=== PATIENT | male | born 1980 | race Caucasian/White ===

== ENCOUNTER → 2017-01-28 | Outpatient (CLI) | payer BC ==
--- NOTE | 2017-01-28 16:25 | XR ---
EXAMINATION TYPE: XR chest 2V DATE OF EXAM: 01/28/2017 COMPARISON: 08/05/2016 INDICATION: Testicular cancer TECHNIQUE: Frontal and lateral views of the chest are obtained. FINDINGS: The heart size is normal. The pulmonary vasculature is normal. The lungs are clear. No suspicious osseous or lung masses. IMPRESSION: 1. No acute pulmonary process.
== END | disposition home or self-care (01) ==
LOC: RADXRMAIN 15:57
PROVIDERS: ATTEND Urology
DX: C62.90 Malignant neoplasm of unspecified testis, unspecified whether descended or undescended (principal)
CPT/HCPCS: 71020; 82105; 83615; 84702

== ENCOUNTER → 2018-02-08 | Outpatient (CLI) | payer OTHER ==
--- NOTE | 2018-02-08 23:48 | CT ---
EXAMINATION TYPE: CT abdomen pelvis w con DATE OF EXAM: 02/08/2018 COMPARISON: 08/05/2016 HISTORY: 37-year-old male Follow up for testicular cancer. TECHNIQUE: Contiguous axial scanning of the abdomen and pelvis following administration of 100 ml Iso kiran 300 IV contrast. Delayed images through the kidneys and coronal/sagittal reconstructions perform ed. CT DLP: 1310 mGycm Automated exposure control for dose reduction was used. FINDINGS: Heart is normal size without pericardial effusion. Lung bases clear without pleural effusion. Tiny hiatal hernia. The liver is mildly enlarged at 18.3 cm. No focal liver lesion or biliary ductal dilatation. Portal v enous system is patent. Gallbladder, adrenal glands, kidneys, spleen, and pancreas appear within normal limits. Scattered nonenlarged and borderline sized mesenteric lymph nodes are either stable to smaller now me asuring up to 6 mm versus 7 mm, previously. Postsurgical changes of retroperitoneal lymph node dissection. No retroperitoneal lymphadenopathy is identified. No dilated small bowel, free fluid, or free air. Normal appendix. Oral contrast has progressed to the rectum. There is mild stool burden. No pericolon ic inflammatory change. Bladder shows marked urinary distention to the level of the umbilicus and by 18.2 cm. No abnormal flu id collection in the pelvis or pelvic lymphadenopathy seen. Multiple pelvic phleboliths. The left larisa ticle appears surgically absent. Bones: Stable sclerotic focus within the left ischial tuberosity likely bone island. No osseous destr uctive process. IMPRESSION: 1. STATUS POST LEFT ORCHIECTOMY AND RETROPERITONEAL LYMPH NODE DISSECTION. 2. NONENLARGED AND BORDERLINE SIZED MESENTERIC LYMPH NODES ARE EITHER STABLE OR MINIMALLY SMALLER NOW MEASURING UP TO 6 MM VERSUS 7 MM, PREVIOUSLY, SUGGESTING A CHRONIC POSTINFLAMMATORY ETIOLOGY. NO RACHEL PICIOUS ENLARGING LYMPH NODES IN THE ABDOMEN OR PELVIS. 3. NO OTHER FINDINGS OF METASTATIC DISEASE. 4. NOTE MARKED URINARY BLADDER DISTENTION UP TO THE LEVEL OF THE UMBILICUS (MEASURING UP TO 18.2 CM). CORRELATE TO ENSURE THAT THIS REPRESENTS VOLUNTARY RETENTION.
== END | disposition home or self-care (01) ==
LOC: RADCTMAIN 14:19
PROVIDERS: ATTEND Urology
DX: N32.89 Other specified disorders of bladder (principal); Z85.47 Personal history of malignant neoplasm of testis; Z90.79 Acquired absence of other genital organ(s); Z98.890 Other specified postprocedural states
CPT/HCPCS: 84702; 82105; 74177; 36415; Q9967

== ENCOUNTER → 2018-08-31 | Outpatient (CLI) | payer OTHER ==
--- NOTE | 2018-08-31 13:44 | XR ---
EXAMINATION TYPE: XR chest 2V DATE OF EXAM: 08/31/2018 COMPARISON: 07/28/2017 HISTORY: History of testicular carcinoma. Follow-up exam. TECHNIQUE: Frontal and lateral views of the chest are obtained. FINDINGS: There is no focal air space opacity, pleural effusion, or pneumothorax seen. The cardiac silhouette size is within normal limits. The osseous structures are intact. IMPRESSION: No acute cardiopulmonary process.
== END | disposition home or self-care (01) ==
LOC: RADXRMAIN 13:09
PROVIDERS: ATTEND Urology
DX: C62.12 Malignant neoplasm of descended left testis (principal)
CPT/HCPCS: 71046; 82105

== ENCOUNTER → 2019-04-12 | Outpatient (CLI) | payer OTHER ==
--- NOTE | 2019-04-12 12:59 | XR ---
EXAMINATION TYPE: XR chest 2V DATE OF EXAM: 04/12/2019 COMPARISON: Chest x-ray August 31, 2018. HISTORY: History of testicular cancer and hematuria. TECHNIQUE: Frontal and lateral views of the chest are obtained. FINDINGS: There is no focal air space opacity, pleural effusion, or pneumothorax seen. The cardiac silhouette size is within normal limits. The osseous structures are intact. IMPRESSION: No acute cardiopulmonary process. No significant change from prior.
--- NOTE | 2019-04-12 14:38 | CT ---
EXAMINATION TYPE: CT abdomen pelvis w con DATE OF EXAM: 04/12/2019 COMPARISON: CT abdomen and pelvis February 08, [address] HISTORY: f/u testicular ca. hematuria. CT DLP: 828.5 mGycm, Automated Exposure Control for Dose Reduction was Utilized. CONTRAST: CT scan of the abdomen and pelvis is performed with oral and with IV Contrast, patient injected with 100 mL of Isovue 300. FINDINGS: LUNG BASES: Dependent atelectasis in both bases. LIVER/GB: No significant abnormality is appreciated. PANCREAS: No significant abnormality is seen. SPLEEN: No significant abnormality is seen. ADRENALS: No significant abnormality is seen. KIDNEYS: Symmetric cortical medullary uptake and excretion from both kidneys without hydronephrosis s een bilaterally. Distended bladder again seen without suspicious wall thickening or mass. Scattered p elvic phleboliths. BOWEL: Oral contrast reaches the level of hepatic flexure. No suspicious small or large bowel dilatat ion. Appendix within normal limits for base of cecum. PROSTATE/SEMINAL VESICLES: No gross abnormality seen. LYMPH NODES: Numerous retroperitoneal clips again seen. No new greater than 1cm abdominal or pelvic lymph nodes are appreciated. Stable subcentimeter left-s ided mesenteric lymph nodes. OSSEOUS STRUCTURES: Stable sclerotic focus left ischial tuberosity coronal image 52 favoring benign b one island. OTHER: Absent left testicle redemonstrated. IMPRESSION: No suspicious new mass or adenopathy is seen to suggest neoplastic recurrence.
== END | disposition home or self-care (01) ==
LOC: RADCTMAIN 12:35
PROVIDERS: ATTEND Urology
DX: C62.12 Malignant neoplasm of descended left testis (principal); R31.1 Benign essential microscopic hematuria
CPT/HCPCS: 82105; 71046; 74177; Q9967